=== PATIENT | male | born 1960 | race American Indian/Alaskan Native ===

== ENCOUNTER 2017-12-28 12:39 | Outpatient (CLI) | payer OTHER ==
[2017-12-28] MEDS ORDERED: PROVENTIL IH ONE (13:58)
--- NOTE | 2017-12-29 02:33 | Pulmonary Function Test ---
PULMONARY FUNCTION TESTS SPIROMETRY: FVC 4.3 liters, which is 102% of the predicted. FEV1 is 3.48 liters, which is 105% of the predicted. FEV1/FVC ratio is 81. Flow volume loop FEF 25-75% is 3.69 liters per second, which is 118% of the predicted and the patient MVV is 97% of the predicted. Lung volumes, slow vital capacity of 4.23 liters, which is 95% of the predicted. TLC is 6.72 liters, which is 93% of predicted. RV is 110% of the predicted and DLCO is 89% of the predicted. The patient's airway resistance is low, specific conductance is good. IMPRESSION: Normal pulmonary function test. The patient's blood gases pH 7.37, pCO2 of 41, pO2 of 90, bicarbonate of 24, O2 saturation is 97% on room air, normal blood gases. JOB# [id number] DINO/CASIMIRO
== END 2017-12-28 12:40 | disposition home or self-care (01) ==
LOC: PF 12:39
PROVIDERS: ATTEND Internal Medicine
DX: J44.9 Chronic obstructive pulmonary disease, unspecified (principal)
CPT/HCPCS: 36600; 82803; 94060; 94640; 94726; 94729